=== PATIENT | female | born 1995 | race Two or more races ===

== ENCOUNTER 2021-05-03 00:38 | Emergency (ER) | payer BC ==
[~2021-05-03] VITALS: Ht 165.1 cm; Wt 63.5 kg
[2021-05-03 00:44] VITALS: BP 129/81
[2021-05-03] MEDS ORDERED: LIDOCAINE VISCOUS 2% UD 15 ML UDC ONE (01:06)
[2021-05-03] MEDS ORDERED: MAG HYDROX/AL HYDROX/SIMETH 30 ML UDC ONE (01:06)
[2021-05-03] MEDS ORDERED: PANT40TA2 PO (01:22)
[2021-05-03] MEDS ORDERED: LIDOCAINE VISCOUS 2% UD 15 ML UDC MM ONE (01:30)
[2021-05-03] MEDS ORDERED: MAG HYDROX/AL HYDROX/SIMETH 30 ML UDC PO ONE (01:30)
== END 2021-05-03 01:35 | disposition home or self-care (01) ==
LOC: ER 00:43
DX: K21.9 Gastro-esophageal reflux disease without esophagitis (principal); Z60.2 Problems related to living alone; Z79.899 Other long term (current) drug therapy